=== PATIENT | female | born 1960 | race Caucasian/White ===

== ENCOUNTER 2017-02-15 15:48 | Outpatient (CLI) | payer OTHER ==
--- NOTE | 2017-02-15 16:39 | DIAGNOSTIC IMAGING REPORT ---
PROCEDURE: XR CHEST 2 VIEW INDICATION: PRE OP TECHNIQUE: PA and lateral views. COMPARISON: Chest 07/13/2013 FINDINGS: Lungs are clear. Heart and mediastinum are normal. Thorax is normal. IMPRESSION: 1. Negative chest.
== END 2017-02-15 23:00 ==
LOC: XR SRH 15:48
DX: Z01.818 Encounter for other preprocedural examination (principal); H26.9 Unspecified cataract; F17.200 Nicotine dependence, unspecified, uncomplicated